=== PATIENT | female | born 1970 | race Caucasian/White ===

== ENCOUNTER 2016-08-16 19:47 | Emergency (ER) | payer OTHER, SELFPAY ==
[~2016-08-16] VITALS: Ht 165.1 cm; Wt 117.9 kg
[2016-08-16] MEDS ORDERED: LASI40TA PO (20:05)
[2016-08-16] MEDS ORDERED: K-TA10TA2 PO (20:05)
[2016-08-16] MEDS ORDERED: KETOROLAC 30 MG/ML VIAL (J1885) IV ONE (20:30)
[2016-08-16] MEDS ORDERED: NS 1,000 ML IV ONE (20:30)
[2016-08-16] MEDS ORDERED: ONDANSETRON 4MG/2ML VIAL (J2405) IV ONE (20:30)
[2016-08-16] MEDS ORDERED: MORPHINE 4 MG/ML 1ML SYRINGE IV ONE ×2 (20:45→22:00)
[2016-08-16 21:05] LABS: BASO % 0.4 % (0.0-1.0); EOS # 0.2 K/mm3 (0.0-0.50); EOS % 3.1 % (0.0-3.0); LARGE UNSTAINED CELL # 0.1 K/mm3 (0.0-0.4); LARGE UNSTAINED CELL % 1.1 % (0.0-4.0); LYMPH # 0.6 K/mm3 (1.5-4.5); LYMPH % 12.3 % (24.0-44.0); MEAN CORPUSCULAR HEMOGLOBIN 22.2 pg (27.0-33.0); MEAN CORPUSCULAR VOLUME 71.8 fl (80.0-96.0); MONO # 0.3 K/mm3 (0.0-0.8); MONO % 4.8 % (0.0-5.0); NEUTROPHILS # 4.1 K/mm3 (1.8-7.7); NEUTROPHILS % 78.2 % (36.0-66.0); RED CELL DISTRIBUTION WIDTH 15.2 % (11.5-14.5); WHITE BLOOD COUNT 5.2 K/mm3 (4.0-10.0)
[2016-08-16 21:28] LABS: PLATELET COUNT, AUTOMATED 71 k/mm3 (150-450)
[2016-08-16 22:11] LABS: ALBUMIN 3.8 GM/DL (3.2-5.2); ALBUMIN/GLOBULIN RATIO 1.09 (1.00-1.93); ALKALINE PHOSPHATASE 51 U/L (45-117); ALT/SGPT 31 U/L (12-78); ANION GAP 6 MEQ/L (8-16); AST/SGOT 39 U/L (15-37); BILIRUBIN,DIRECT 0.4 MG/DL (0.0-0.2); BLOOD UREA NITROGEN 10 MG/DL (7-18); CALCIUM LEVEL 8.4 MG/DL (8.5-10.1); CARBON DIOXIDE LEVEL 26 MEQ/L (21-32); CHLORIDE LEVEL 108 MEQ/L (98-107); CREATININE FOR GFR 0.72 MG/DL (0.55-1.02); GLOMERULAR FILTRATION RATE > 60.0 (>58); GLUCOSE, FASTING 135 MG/DL (70-105); POTASSIUM SERUM 3.6 MEQ/L (3.5-5.1); SODIUM LEVEL 140 MEQ/L (136-145); TOTAL PROTEIN 7.3 GM/DL (6.4-8.2)
--- NOTE | 2016-08-16 22:50 | REPUSA ---
CT of the abdomen and pelvis without contrast Clinical statement: Pain. Technique: Multiple axial CT images were obtained from the base of the lungs to the floor of the pelv is utilizing 5 mm axial slices without administration of contrast. Coronal and sagittal reconstructio ns were also obtained. No comparison is available. Findings: Chest: The visualized lung bases are clear. Abdomen: The kidneys are normal in size bilaterally. There is no evidence of hydronephrosis or nephro lithiasis. The spleen is enlarged, measuring 21.1 cm in diameter. The liver, pancreas, gallbladder an d adrenal glands are unremarkable. The aorta demonstrates normal caliber and contour. There is no abd ominal lymphadenopathy or ascites. Pelvis: The bowel is unremarkable, with no obstructive or inflammatory changes. The appendix is dia l. The urinary bladder is within normal limits. There is no pelvic lymphadenopathy or ascites. There is a large complex mixed attenuation mass in the central pelvis, measuring 9.7 x 14.5 x 10.8 cm. This appears to originate from the right adnexa. This causes mass effect on the urinary bladder. The uter us appears unremarkable. Bones: There are no suspicious osseous abnormalities seen. Impression: 1. Large complex mass in the central pelvis, apparently originating from the right adnexa measuring u p to 14.5 cm in diameter. This is likely of ovarian origin. Ultrasound would be recommended for furt her evaluation. MRI would also be beneficial. 2. Splenomegaly. 3. No obstructive or inflammatory bowel changes. 4. No evidence of hydronephrosis or nephrolithiasis.
[2016-08-16] MEDS ORDERED: HYDROmorphone HCL 1 MG/ML SYRINGE (J1170) IV ONE (23:00)
--- NOTE | 2016-08-17 00:30 | REPUSA ---
CLINICAL HISTORY: Flank pain. Right lower quadrant pain. TECHNIQUE: Realtime sonographic images were obtained in multiple projections via TV approach. COMMENTS: The uterus is normal in size measuring 7.8 times a 2.8x4.6 cm. Anteverted uterus. The right ovary measures 12.1x8.3x14.6 cm. Complex septated cyst that comprises the entire right ovar y. The left ovary measures 3.7x2.2x1.7 cm. Normal bilateral ovarian flow. IMPRESSION: Complex septated cyst that comprises the right ovary. Normal ovarian flow. Thank you for your kind referral of this patient.
[2016-08-17] MEDS ORDERED: PERC5TAB6 PO (00:51)
[2016-08-17 01:01] VITALS: BP 109/64
[2016-08-17] MEDS ORDERED: ONDANSETRON 4 MG ORAL DISINTEGRATING TAB (S0181) PO ONE (01:30)
--- NOTE | 2016-08-18 15:04 | ED PDOC ---
Post-Departure Follow-Up certified letter sent to pt re formal read of pelvic us. as complex cyst needs fu Meagan Snell MD August 18, 2016 15:04
--- NOTE | 2016-08-18 15:05 | ED PDOC ---
Post-Departure Follow-Up additionally needs fu of ct abd/p Meagan Snell MD August 18, 2016 15:05
== END 2016-08-17 01:23 | disposition home or self-care (01) ==
LOC: M ED 21:33
DX: N83.201 Unspecified ovarian cyst, right side (principal); R10.2 Pelvic and perineal pain; R19.09 Other intra-abdominal and pelvic swelling, mass and lump; R16.1 Splenomegaly, not elsewhere classified; Z79.899 Other long term (current) drug therapy; Z88.6 Allergy status to analgesic agent; Z88.5 Allergy status to narcotic agent
CPT/HCPCS: 74176; 76856; 80048; 80076; 81001; 81025; 83690; 85025; 96361; 96374; 96375; 96376; 99284; J1170; J1885; J2405